=== PATIENT | female | born 1960 | race Caucasian/White ===

== ENCOUNTER 2021-10-06 08:28 | Emergency (ER) | payer BC ==
[~2021-10-06] VITALS: Ht 154.9 cm; Wt 74.4 kg
[2021-10-06 09:03] VITALS: BP_SYST 147
--- NOTE | 2021-10-06 09:06 | NUR ---
DR. MACKEY AT BEDSIDE. PT ENDORSED TO DEANGELO MARROQUIN. PT BEING SEEN FOR BODY ACHES, WEAKNESS, NAUSEA, CLOUDY HEAD, DIFFICULTY CONCENTRATING X 2 DAYS. PT STATES SHE HAD 2 NEGATIVE COVID TESTS. PT IS AAOX4. ON R/A. NO COUGH OR SOB, 02 SAT 95%. PT HAS C/O NAUSEA WITH VOMITING. SKIN WARM, DRY, TENTING < 3 SECS. SIDE RAIL UP X2, SIGNIFICANT OTHER AT BEDSIDE.
[2021-10-06] MEDS ORDERED: ONDANSETRON 4 MG ODT TAB PO ONE (09:15)
[2021-10-06] MEDS ORDERED: KETOROLAC TROMETHAMINE 60 MG/2 ML VIAL IM ONE (09:15)
--- NOTE | 2021-10-06 09:15 | NUR ---
PT WALKED TO ROOM WITH FLU-LIKE SYMPTOM. FAMILY BEDSIDE. PT WAS EXAMINED BY DR. MACKEY. XRAY DONE BEDSIDE. N
--- NOTE | 2021-10-06 09:27 | NUR ---
SHERYL AND FLU A/B SAMPLES OBTAINED AND TAKEN TO LAB
[2021-10-06 09:36] LABS: BASOPHILS % (AUTO) 0.5 % (0.0-2.0); EOSINOPHILS # (AUTO) 0.2 K/uL (0.0-0.4); EOSINOPHILS % (AUTO) 2.5 % (0.0-4.0); HEMATOCRIT 36.4 % (36-48); HEMOGLOBIN 11.8 g/dL (12.0-16.0); LYMPHOCYTES # (AUTO) 1.5 K/uL (1.0-5.5); LYMPHOCYTES % (AUTO) 17.9 % (20.5-51.5); MEAN CORPUSCULAR HEMOGLOBIN 19 pg (27-31); MEAN CORPUSCULAR HGB CONC 32 % (32-36); MEAN CORPUSCULAR VOLUME 59 fL (79.0-98.0); MONOCYTES # (AUTO) 0.7 K/uL (0.0-1.0); MONOCYTES % (AUTO) 8.8 % (1.7-9.3); NEUTROPHILS # (AUTO) 5.9 K/uL (1.8-7.7); NEUTROPHILS % (AUTO) 70.3 % (40.0-70.0); PLATELET COUNT (AUTO) 185 K/uL (130-430); RED BLOOD CELL COUNT(AUTO) 6.22 MIL/uL (4.2-6.2); WHITE BLOOD COUNT (AUTO) 8.3 K/uL (4.8-10.8)
[2021-10-06 09:46] LABS: ANION GAP 10 (5-15); CHLORIDE 106 mmol/L (98-107); CREATININE 0.69 mg/dL (0.55-1.30); GLUCOSE 110 mg/dL (70-99); POTASSIUM 4.1 mmol/L (3.5-5.1); SODIUM SERUM 141 mmol/L (136-145); UREA NITROGEN, BLOOD 16 mg/dL (8-21)
[2021-10-06 09:53] LABS: ALANINE AMINOTRANSFERASE 22 U/L (12-78); ALBUMIN 3.1 g/dL (3.4-4.8); ASPARTATE AMINOTRANSFERASE 20 U/L (10-37); TOTAL BILIRUBIN 0.4 mg/dL (0.0-1.0)
[2021-10-06 09:56] LABS: GFR AFRICAN AMERICAN 111 mL/min (>90)
[2021-10-06 11:01] LABS: BILIRUBIN,URINE NEGATIVE (NEGATIVE); BLOOD, URINE 1+ (NEGATIVE); CLARITY/URINE CLEAR (CLEAR); COLOR,URINE YELLOW (YELLOW); GLUCOSE,URINE NEGATIVE (NEGATIVE); KETONES,URINE NEGATIVE (NEGATIVE); LEUKOCYTE ESTERASE ,URINE NEGATIVE (NEGATIVE); NITRITE, URINE NEGATIVE (NEGATIVE); PH,URINE 5.5 (5.0-8.0); PROTEIN URINE NEGATIVE (NEGATIVE); UROBILINOGEN,URINE 0.2 (0.2-1.0)
--- NOTE | 2021-10-06 11:04 | NUR ---
PT WAS MOVED TO .
[2021-10-06 11:17] LABS: BACTERIA,URINE RARE /HPF (None Seen); MUCUS,URINE 1+ /LPF (None Seen); RBC,URINE 0-3 /HPF (0-3); WBC,URINE 0-3 /HPF (0-3)
--- NOTE | 2021-10-06 11:36 | NUR ---
Patient given written and verbal discharge instructions and verbalizes understanding. ER MD discussed with patient the results and treatment provided. Patient in stable condition. ID arm band removed. IV catheter removed intact and dressing applied, no active bleeding. Patient educated on pain management and to follow up with PMD. Pain Scale 2. Opportunity for questions provided and answered. Medication side effect fact sheet provided.
[2021-10-06 11:39] VITALS: BP_SYST 137
== END 2021-10-06 11:39 | disposition home or self-care (01) ==
LOC: SED 08:28
DX: B34.9 Viral infection, unspecified (principal); R51.9 Headache, unspecified; R53.1 Weakness; R11.0 Nausea; Z20.822 Contact with and (suspected) exposure to COVID-19
CPT/HCPCS: 99285; 71045; 87426; 80053; 81000; 83880; 85025; 84484; 36415; 93005; 96372; 87804 ×2; Q0162; J1885

== ENCOUNTER 2023-03-25 14:41 | Inpatient (IN) | payer BC ==
[~2023-03-25] VITALS: Ht 157.5 cm; Wt 81.0 kg
[2023-03-25 14:47] VITALS: BP_SYST 172; PULSE 85; RESP 18; TEMP 98.5; O2SAT 97
[2023-03-25 16:15] LABS: BASOPHILS # (AUTO) 0.1 K/uL (0.0-0.2); BASOPHILS % (AUTO) 0.8 % (0.0-2.0); EOSINOPHILS # (AUTO) 0.1 K/uL (0.0-0.4); EOSINOPHILS % (AUTO) 1.4 % (0.0-4.0); HEMATOCRIT 37.1 % (36-48); HEMOGLOBIN 12.2 g/dL (12.0-16.0); LYMPHOCYTES # (AUTO) 1.1 K/uL (1.0-5.5); LYMPHOCYTES % (AUTO) 14.7 % (20.5-51.5); MEAN CORPUSCULAR HEMOGLOBIN 20 pg (27-31); MEAN CORPUSCULAR HGB CONC 33 % (32-36); MEAN CORPUSCULAR VOLUME 60 fL (79.0-98.0); MONOCYTES # (AUTO) 0.3 K/uL (0.0-1.0); NEUTROPHILS # (AUTO) 6.2 K/uL (1.8-7.7); NEUTROPHILS % (AUTO) 79.1 % (40.0-70.0); PLATELET COUNT (AUTO) 239 K/uL (130-430); RED BLOOD CELL COUNT(AUTO) 6.19 MIL/uL (4.2-6.2); RED CELL DISTRIBUTION WIDTH 16.7 % (9.0-15.0); WHITE BLOOD COUNT (AUTO) 7.8 K/uL (4.8-10.8)
[2023-03-25] MEDS ORDERED: LABETALOL HCL 20 MG/4 ML CARTRIDGE IVP ONE ×2 (16:15→18:15)
[2023-03-25 16:27] LABS: CALCIUM 9.8 mg/dL (8.4-11.0); CREATININE 0.86 mg/dL (0.55-1.30); POTASSIUM 4.1 mmol/L (3.5-5.1)
[2023-03-25 16:28] LABS: BILIRUBIN,URINE NEGATIVE (NEGATIVE); BLOOD, URINE 1+ (NEGATIVE); CLARITY/URINE CLEAR (CLEAR); COLOR,URINE YELLOW (YELLOW); GLUCOSE,URINE NEGATIVE (NEGATIVE); KETONES,URINE NEGATIVE (NEGATIVE); LEUKOCYTE ESTERASE ,URINE NEGATIVE (NEGATIVE); NITRITE, URINE NEGATIVE (NEGATIVE); PH,URINE 5.5 (5.0-8.0); PROTEIN URINE NEGATIVE (NEGATIVE); UROBILINOGEN,URINE 0.2 (0.2-1.0)
[2023-03-25] MEDS ORDERED: MECLIZINE HCL 25 MG TABLET (ANITVERT) PO ONE (16:30)
[2023-03-25 16:32] LABS: ALBUMIN 3.8 g/dL (3.4-4.8); BILIRUBIN,DIRECT 0.1 mg/dL (0.0-0.3); TOTAL BILIRUBIN 0.5 mg/dL (0.0-1.0); TOTAL PROTEIN, SERUM 7.3 g/dL (6.4-8.3)
[2023-03-25 16:41] LABS: BARBITURATE, URINE NEGATIVE (NEG <=200); BENZODIAZEPINE, URINE NEGATIVE (NEG <=150); CANNABINOID, URINE NEGATIVE (NEG <=50); COCAINE, URINE NEGATIVE (NEG <=150); METHAMPHETAMINES SCREEN,URINE NEGATIVE (NEG <=500); OPIATE, URINE NEGATIVE (NEG <=100); PHENCYCLIDINE SCREEN,URINE NEGATIVE (NEG <=25); URINE AMPHETAMINE NEGATIVE (NEG <=500); URINE METHADONE NEGATIVE (NEG <=200); URINE OXYCODONE SCREEN NEGATIVE (NEG <=100)
[2023-03-25 16:42] LABS: UR TRICYCLIC ANTIDEPRESSANTS NEGATIVE (NEG <=300)
[2023-03-25 16:49] LABS: PROTHROMBIN TIME 10.4 SECS (9.5-12.5)
[2023-03-25 16:52] LABS: CHOLESTEROL 249 mg/dL (<200); HDL CHOLESTEROL 55 mg/dL (>55); TRIGLYCERIDES 128 mg/dL (30-150)
[2023-03-25 16:57] LABS: BACTERIA,URINE FEW /HPF (None Seen); WBC,URINE 0-3 /HPF (0-3)
[2023-03-25] MEDS ORDERED: ASPIRIN 81 MG TAB.CHEW PO ONE (18:15)
[2023-03-25] MEDS ORDERED: hydrALAZINE HCL 20 MG/ML VIAL IVP PRN (19:15)
[2023-03-26 08:29] LABS: ALBUMIN 3.5 g/dL (3.4-4.8); CALCIUM 9.1 mg/dL (8.4-11.0); CREATININE 0.68 mg/dL (0.55-1.30); POTASSIUM 4.2 mmol/L (3.5-5.1); TOTAL BILIRUBIN 0.6 mg/dL (0.0-1.0)
[2023-03-26 08:31] LABS: BASOPHILS # (AUTO) 0.1 K/uL (0.0-0.2); BASOPHILS % (AUTO) 0.8 % (0.0-2.0); EOSINOPHILS # (AUTO) 0.2 K/uL (0.0-0.4); EOSINOPHILS % (AUTO) 1.8 % (0.0-4.0); HEMOGLOBIN 12.3 g/dL (12.0-16.0); LYMPHOCYTES # (AUTO) 1.5 K/uL (1.0-5.5); MEAN CORPUSCULAR HEMOGLOBIN 20 pg (27-31); MEAN CORPUSCULAR HGB CONC 33 % (32-36); MEAN CORPUSCULAR VOLUME 59 fL (79.0-98.0); MONOCYTES # (AUTO) 0.7 K/uL (0.0-1.0); MONOCYTES % (AUTO) 7.3 % (1.7-9.3); NEUTROPHILS # (AUTO) 6.9 K/uL (1.8-7.7); NEUTROPHILS % (AUTO) 74.1 % (40.0-70.0); PLATELET COUNT (AUTO) 244 K/uL (130-430); RED BLOOD CELL COUNT(AUTO) 6.24 MIL/uL (4.2-6.2); RED CELL DISTRIBUTION WIDTH 16.8 % (9.0-15.0); WHITE BLOOD COUNT (AUTO) 9.2 K/uL (4.8-10.8)
[2023-03-26] MEDS: NICOTINE 14 MG/24 HR PATCH.TD24 TD SCH (09:00)
[2023-03-26] MEDS ORDERED: HEPARIN SODIUM,PORCINE 5,000 UNITS/ML VIAL SUBCUT SCH (09:00)
[2023-03-26] MEDS: ASPIRIN 81 MG TAB.CHEW PO SCH (09:00)
[2023-03-26] MEDS ORDERED: ATORVASTATIN 20 MG TABLET PO SCH (09:00)
[2023-03-26] MEDS ORDERED: LOSARTAN POTASSIUM 50 MG TABLET (COZAAR) PO ONE (09:30)
[2023-03-27] MEDS: ATORVASTATIN 20 MG TABLET PO SCH (09:00)
[2023-03-27] MEDS: NICOTINE 14 MG/24 HR PATCH.TD24 TD SCH (10:03)
[2023-03-27] MEDS: ASPIRIN 81 MG TAB.CHEW PO SCH (10:03)
[2023-03-27] MEDS: LOSARTAN POTASSIUM 50 MG TABLET (COZAAR) PO SCH (10:03)
[2023-03-27 21:30] VITALS: BP_SYST 131; PULSE 62; RESP 16; TEMP 97.7; O2SAT 98
[2023-03-28] MEDS: LOSARTAN POTASSIUM 50 MG TABLET (COZAAR) PO SCH (08:27)
[2023-03-28] MEDS: NICOTINE 14 MG/24 HR PATCH.TD24 TD SCH (08:27)
[2023-03-28] MEDS: ATORVASTATIN 20 MG TABLET PO SCH (08:27)
[2023-03-28] MEDS: ASPIRIN 81 MG TAB.CHEW PO SCH (08:27)
[2023-03-28] MEDS ORDERED: LIP20 PO (08:59)
[2023-03-28] MEDS ORDERED: ASPI-1393 PO (08:59)
[2023-03-28] MEDS ORDERED: LOSA-415 PO (09:04)
[2023-03-28 10:18] VITALS: O2SAT 99
[2023-03-28 10:25] VITALS: BP_SYST 134; PULSE 68; RESP 16; TEMP 98.2
[2023-03-28 12:00] VITALS: BP_SYST 143; PULSE 65; RESP 16; TEMP 98.2; O2SAT 100
[2023-03-28 14:52] VITALS: BP_SYST 119; PULSE 65; RESP 16; TEMP 98.2; O2SAT 99
== END 2023-03-28 15:25 | disposition home or self-care (01) | DRG 305 ==
LOC: SED 14:41 → STU 18:32
PROVIDERS: ADMIT Student in an Organized Health Care Education/Training Program; ATTEND Student in an Organized Health Care Education/Training Program
DX: I16.1 Hypertensive emergency (principal); I10 Essential (primary) hypertension; M19.90 Unspecified osteoarthritis, unspecified site; E78.5 Hyperlipidemia, unspecified; G90.8 Other disorders of autonomic nervous system; Z72.0 Tobacco use
CPT/HCPCS: 36415; 70450-TC; 70551; 71045; 76376; 80048; 80053; 80061; 80076; 80307; 81000; 81001; 81015; 83037; 84484; 85025; 85610-TC; 85651-TC; 85730-TC; 92610-GN; 93005; 93306; 93880; 97116-GP; 97163-GP; 99291; G0378; J8597